=== PATIENT | female | born 1960 | race Caucasian/White ===

== ENCOUNTER 2016-11-12 18:59 | Day surgery (SDC) | payer OTHER ==
[~2016-11-12] VITALS: Ht 162.6 cm; Wt 65.8 kg
[2016-11-12 19:39] LABS: ADD MIUA? YES; BILIRUBIN NEGATIVE; BLOOD NEGATIVE; COLOR YELLOW ((YELLOW)); GLUCOSE (STRIP) NEGATIVE; KETONES 20; LEUKOCYTES MODERATE; NITRITE NEGATIVE; PROTEIN (STRIP) NEGATIVE; SPECIFIC GRAVITY 1.014 (1.000-1.030); UROBILINOGEN 0.2 MG/DL (0.2-1.0)
[2016-11-12 19:39] LABS: HEMATOCRIT 42.7 % (36.0-46.0); MCH 31.2 PG (29.0-34.0); MCV 94.5 FL (83-99); MEAN PLAT.VOLUME 9.2 uM^3 (9.5-12.4); PLATELET COUNT 183 K/uL (156-360); RBC DIS.WIDTH-CV 13.2 % (11.8-14.6); RBC DIS.WIDTH-SD 45.5 % (39-53); RED BLOOD COUNT 4.52 M/uL (3.80-5.20); WHITE BLOOD COUNT 12.6 K/uL (4.1-10.2)
[2016-11-12 19:48] LABS: BACTERIA RARE /HPF; EPITHELIAL CELLS RARE /HPF; MUCUS TRACE /LPF; RED BLOOD CELLS 0-5 /HPF (0-5); UCUL ADDED? NO
[2016-11-12 19:51] LABS: CHLORIDE 106 mEq/L (99-109); SODIUM 141 mEq/L (136-147)
[2016-11-12 19:53] LABS: GLUCOSE 113 mg/dL (70-99)
[2016-11-12 19:55] LABS: ANION GAP 12 MEQ/L (2-14); TOTAL BILIRUBIN 0.8 mg/dL (0.0-1.0)
[2016-11-12 19:57] LABS: ALKALINE PHOSPHATASE 74 IU/L (3-129); GFR ESTIMATE (CALCULATED) > 59 mL/min/
[2016-11-12 19:58] LABS: UREA NITROGEN (BUN) 14 mg/dL (9-23)
[2016-11-12 20:39] LABS: LIPASE 28 U/L (1.0-51.0)
[2016-11-12] MEDS ORDERED: VITAMIN K100 MCG PO (22:40)
[2016-11-12] MEDS ORDERED: VITAMIN D5000 UNI1 PO ×2 (22:40→22:41)
[2016-11-12] MEDS ORDERED: COQ10-VIT E 101 EACH PO (22:41)
[2016-11-12] MEDS ORDERED: BIOTIN 5000MCG PO (22:41)
[2016-11-12] MEDS ORDERED: DAILY VALUE1 EACH PO (22:42)
[2016-11-13 02:25] VITALS: BP 112/57
[2016-11-13 08:00] VITALS: BP 109/64
[2016-11-13 11:43] VITALS: BP 95/53
[2016-11-13 15:35] VITALS: BP 96/50
[2016-11-13] MEDS ORDERED: AUGMENTIN875 MG PO (15:40)
[2016-11-13] MEDS ORDERED: FLORASTOR250 MG PO (15:40)
[2016-11-13] MEDS ORDERED: ENDOCET 5-3251 EACH PO (15:43)
[2016-11-13] MEDS ORDERED: COLACE100 MG PO (15:43)
== END 2016-11-13 18:37 | disposition home or self-care (01) ==
LOC: EME 18:59 → SDC 23:44 → 2SOUTH 11-13 00:52 → 2WEST 11-13 02:18 → 2EAST 11-13 02:23
DX: K35.80 Unspecified acute appendicitis (principal); K38.1 Appendicular concretions; Z80.9 Family history of malignant neoplasm, unspecified; Z82.49 Family history of ischemic heart disease and other diseases of the circulatory system
CPT/HCPCS: 74177; 80053; 81003; 83690; 85027; 88304; 93005; 99281; 99285; G0378; J1170; J1885; J2270; J2405; J2543; J3010; J7030; J7050; J7120

== ENCOUNTER 2016-11-24 08:35 | Emergency (ER) | payer OTHER ==
[~2016-11-24] VITALS: Ht 162.6 cm; Wt 65.0 kg
[~2016-11-24 08:35] MED LIST: AUGMENTIN875 MG PO; BIOTIN 5000MCG PO; COLACE100 MG PO; COQ10-VIT E 101 EACH PO; DAILY VALUE1 EACH PO; ENDOCET 5-3251 EACH PO; FLORASTOR250 MG PO; VITAMIN D5000 UNI1 PO; VITAMIN K100 MCG PO
[2016-11-24 10:10] VITALS: BP 117/71
== END 2016-11-24 11:40 | disposition home or self-care (01) ==
LOC: EME 08:35
PROC: 0J980ZZ Drainage of Abdomen Subcutaneous Tissue and Fascia, Open Approach (ICD-10-PCS; principal; 2016-11-24)
DX: T81.4XXA Infection following a procedure, initial encounter (principal); L02.211 Cutaneous abscess of abdominal wall; B96.20 Unspecified Escherichia coli [E. coli] as the cause of diseases classified elsewhere; Y83.8 Other surgical procedures as the cause of abnormal reaction of the patient, or of later complication, without mention of misadventure at the time of the procedure; Z90.89 Acquired absence of other organs
CPT/HCPCS: 87070; 87075; 87076; 87077; 87185; 87186; 87205; 99281; 99283

== ENCOUNTER → 2016-11-27 | Outpatient (CLI) | payer OTHER ==
[~2016-11-27] VITALS: Ht 162.6 cm; Wt 64.4 kg
== END | disposition home or self-care (01) ==
LOC: OPR 13:20 → EDSTATUS 14:00 → OPR 14:00
DX: K68.11 Postprocedural retroperitoneal abscess (principal)
CPT/HCPCS: 10030; 87070; 87075; 87076; 87077; 87185; 87186; 87205; C1729; C1769; J3010

== ENCOUNTER 2017-01-03 07:34 | Emergency (ER) | payer OTHER ==
[~2017-01-03] VITALS: Ht 162.6 cm; Wt 62.6 kg
[2017-01-03 08:23] LABS: BASOPHIL COUNT 0.1 K/uL (0-0.1); EOSINOPHIL (%) 1.2 % (0-5); EOSINOPHIL COUNT 0.1 K/uL (0-0.3); HEMATOCRIT 38.9 % (36.0-46.0); IMMATURE GRANULOCYTE (%) 0.2 % (0.0-0.7); INSTRUMENT ABS NEUTROPHIL CT 4.2 K/uL; LYMPHOCYTE COUNT 1.8 K/uL (1.0-2.8); MCH 30.1 PG (29.0-34.0); MCHC 31.9 G/DL (30.0-36.0); MCV 94.4 FL (83-99); MEAN PLAT.VOLUME 8.9 uM^3 (9.5-12.4); MONOCYTE (%) 7.6 % (3-12); MONOCYTE COUNT 0.5 K/uL (0-0.8); NEUTROPHIL (%) 63.6 % (45-76); NEUTROPHIL COUNT 4.2 K/uL (1.8-6.4); PLATELET COUNT 178 K/uL (156-360); RBC DIS.WIDTH-CV 13.6 % (11.8-14.6); RBC DIS.WIDTH-SD 47.3 % (39-53); RED BLOOD COUNT 4.12 M/uL (3.80-5.20); WHITE BLOOD COUNT 6.6 K/uL (4.1-10.2)
[2017-01-03 08:32] LABS: CHLORIDE 106 mEq/L (99-109); SODIUM 142 mEq/L (136-147)
[2017-01-03 08:34] LABS: GLUCOSE 113 mg/dL (70-99)
[2017-01-03 08:35] LABS: ANION GAP 9 MEQ/L (2-14)
[2017-01-03 08:36] LABS: TOTAL BILIRUBIN 0.7 mg/dL (0.0-1.0)
[2017-01-03 08:37] LABS: ALKALINE PHOSPHATASE 79 IU/L (3-129)
[2017-01-03 08:38] LABS: GFR ESTIMATE (CALCULATED) > 59 mL/min/
[2017-01-03 08:39] LABS: UREA NITROGEN (BUN) 17 mg/dL (9-23)
[2017-01-03] MEDS ORDERED: FLEXERIL10 MG PO (11:22)
[2017-01-03] MEDS ORDERED: LIDODERM 5% P1 PATCH TD (11:22)
[2017-01-03] MEDS ORDERED: NAPROSYN500 MG PO (11:22)
[2017-01-03 11:34] VITALS: BP 124/78
== END 2017-01-03 11:36 | disposition home or self-care (01) ==
LOC: EME 07:34
PROVIDERS: Physician Assistant
DX: S39.012A Strain of muscle, fascia and tendon of lower back, initial encounter (principal); S30.0XXA Contusion of lower back and pelvis, initial encounter; Z98.890 Other specified postprocedural states; X58.XXXA Exposure to other specified factors, initial encounter; Z90.49 Acquired absence of other specified parts of digestive tract
CPT/HCPCS: 71020; 80053; 85025; 99281; 99283